=== PATIENT | female | born 1990 | race Caucasian/White ===

== ENCOUNTER 2020-04-11 12:16 | Observation (INO) | payer MEDICAID ==
[2020-04-11] MEDS ORDERED: ONDANSETRON PF 4 MG/2 ML VIAL. ONE ×2 (12:44→13:17)
[2020-04-11] MEDS ORDERED: IV RINGERS,LACTATED 1000ML 1,000 ML IV SCH (12:48)
[2020-04-11] MEDS ORDERED: miSOPROStol 200 MCG TABLET ONE (12:49)
[2020-04-11] MEDS ORDERED: OXYTOCIN 10 UNIT/ML VIAL. ONE ×2 (12:49→14:06)
[2020-04-11] MEDS ORDERED: LIDOCAINE 1% PF 2 ML VIAL. ID PRN (13:00)
[2020-04-11] MEDS ORDERED: fentaNYL PF VIAL 100 MCG/2 ML VIAL IV PRN ×2 (13:00)
[2020-04-11] MEDS ORDERED: PROCHLORPERAZINE 10 MG/2 ML VIAL. IV PRN (13:00)
[2020-04-11] MEDS ORDERED: MORPHINE SULFATE 2 MG/ML VIAL. IV PRN (13:00)
[2020-04-11] MEDS ORDERED: ONDANSETRON PF 4 MG/2 ML VIAL. IV PRN (13:00)
[2020-04-11] MEDS ORDERED: HYDROmorphone 2 MG/ML VIAL IV PRN (13:00)
[2020-04-11] MEDS ORDERED: ceFAZolin SODIUM IV Push 1 GM VIAL. IVP ONE (13:10)
[2020-04-11] MEDS ORDERED: ceFAZolin SODIUM IV Push 1 GM VIAL. IVP PRN (13:15)
[2020-04-11] MEDS ORDERED: DEXAMETHASONE SOD PHOS 4 MG/ML VIAL ONE (13:17)
[2020-04-11] MEDS ORDERED: LIDOCAINE 2% PF 5 ML VIAL. ONE (13:17)
[2020-04-11] MEDS ORDERED: KETOROLAC 30 MG/ML VIAL. ONE (13:17)
[2020-04-11] MEDS ORDERED: PROPOFOL 10 MG/ML (20ML) VIAL. IV ONE (13:17)
[2020-04-11] MEDS ORDERED: SEVOFLURANE 16 TO 30 MINUTES. IH ONE (13:17)
[2020-04-11] MEDS ORDERED: FAMOTIDINE 20 MG/2 ML VIAL ONE (13:17)
[2020-04-11] MEDS ORDERED: fentaNYL PF VIAL 100 MCG/2 ML VIAL ONE (13:19)
--- NOTE | 2020-04-11 13:53 | PDOC ---
GENERAL General: 29yrs old lady [id number] Miscarriage came thru ER for with Bleeding for 2 weeks Passing Clots.Pt admitted for Incomplete VITAL SIGNS Vital Signs/I&O: Vital Signs Date Time Temp Pulse Resp B/P (MAP) Pulse Ox O2 Delivery O2 Flow Rate FiO2 04/11/20 12:45 98.0 80 15 98/65 100 Room Air 98.0 ALLERGIES Allergies: Allergies Coded Allergies Type Severity Reaction Last Updated Verified No Known Drug Allergies 04/11/20 No MEDS Medications: Current Medications Medications (Trade) Dose Ordered Sig/Radha Route PRN Reason Start Time Stop Time Status Last Admin Dose Admin Ondansetron HCl (Zofran) 4 mg PRN Q6HRS PRN IV NAUSEA/VOMITING 04/11/20 13:00 04/12/20 12:59 04/11/20 12:49 Ringer's Solution 1,000 ml @ 30 mls/hr Q24H IV 04/11/20 12:48 04/12/20 00:47 04/11/20 12:48 ASSESSMENT & PLAN A&P Under GA D&C Suction Curettage done. EBL 150cc. YONG AVILA MD April 11, 2020 13:53
--- NOTE | 2020-04-11 14:08 | OP ---
DATE OF SURGERY: PREOPERATIVE DIAGNOSES: with bleeding, incomplete . POSTOPERATIVE DIAGNOSES: with bleeding, incomplete . OPERATION PERFORMED: D and C, suction curettage. DESCRIPTION OF PROCEDURE: The patient was taken to the operating room. Under general anesthesia, she was placed in a dorsal lithotomy position. Perineum was prepped and draped in the usual manner. Bladder was catheterized and weighted speculum inserted in the posterior vaginal wall. Anterior lip of the cervix held with a tenaculum and uterine sound is used to measure the length of the uterine cavity. After this, dilators were used to dilate the cervix. A size 8 suction tip cannula was used to suction the uterus. She did receive Pitocin during the time of the D and C. All the suction curettage material is sent for pathological examination. At the end of the suction curettage, medium-sized curette was used to curette the endometrial cavity and all the curettings were also sent to the pathological examination. At the end of the curettage, speculum tenaculum is removed and the patient was sent to the recovery room in good condition. No complications encountered at time of the procedure. Estimated blood loss about 150 mL. Postoperative condition is stable. She will be followed in the office in 2 weeks for further care and treatment. YONG AVILA MD DR: RADHA/marvin JOB#: [id number] / [id number]
[2020-04-11] MEDS ORDERED: TRAM50TA PO (14:11)
[2020-04-11] MEDS ORDERED: OXYTOCIN 10 UNIT/ML VIAL. IVP ONE (14:15)
[2020-04-11 15:00] VITALS: BP 89/51
--- NOTE | 2020-04-12 16:24 | HP ---
ADMIT DATE: 04/11/2020 CHIEF COMPLAINT AND HISTORY OF PRESENT ILLNESS: This patient is a 29-year-old white female who is a 7, para 5, history of 1 miscarriage and she is about 4 months at this time and went to [facility] in [facility] by [facility] in the Emergency Room for with bleeding that is happening for 2 weeks and she was seen by ER physician transferred to [facility] for incomplete and her hemoglobin was about 9 at the time of transfer to [facility]. PHYSICAL EXAMINATION: VITAL SIGNS: Stable. HEAD, EYES, NOSE, THROAT: Within normal limits. LUNGS: Clear. HEART: Sounds regular sinus rhythm. ABDOMEN: Feels soft. PELVIC: Shows external genitalia being normal, external os is open. Moderate vaginal bleeding noted along with the clots. On bimanual exam, uterus feels bulky at least 10-11 week size uterus at this time. No adnexal masses are palpable. EXTREMITIES: No edema of feet. IMPRESSION: Incomplete , retained products of conception. PLAN: Dilation and curettage, suction curettage. YONG AVILA MD DR: RADHA/marvin JOB#: [id number] / [id number]
--- NOTE | 2020-04-13 18:06 | PATHOLOGY ---
[facility] Accession Number: [id number] . 01 Material submitted: . product of conception - PRODUCTS OF CONCEPTION . 01 Clinical history: . with bleeding; incomplete . 02 Diagnosis: Uterine contents, suction D and C: - Products of conception, comprised of placental membranous tissue, segment of umbilical cord, immature chorionic villi showing focal degenerative changes with associated intervillous fibrin deposition and hemorrhage, and segments of decidual tissue showing focal necrosis and acute inflammation. (JPM/db; 04/13/2020) LBQ 04/13/2020 1539 Local . 02 Electronically signed: . Darvin Pierre MD, Pathologist NPI- [id number] . 01 Gross description: . The specimen is received in formalin, labeled "Shanin Maria, products of conception". Received is a moderate amount of pink-noonan soft tissue admixed with membranes and umbilical cord measuring 1.8 x 4.2 x 0.5 cm in aggregate dimensions. or embryonic tissue is not grossly identified. Vesicular structures are absent. The specimen is submitted representatively in cassettes A1 through A3. (CAA; 04/12/2020) QAC/QAC 04/12/2020 1703 Local . 02 Pathologist provided ICD-10: O03.4, O02.89 . 02 CPT . 784048 Specimen Comment: A courtesy copy of this report has been sent to [phone] Specimen Comment: Report sent to Specimen Comment: A duplicate report has been generated due to demographic updates. Performed at: 01 [facility] [address] [facility] [address] [facility] [address], [place], [place] [id number] MD Emmanuel Turcios MD Phone: [phone] Performed at: 02 [facility] [place] [address] [place], [place] [id number] MD Darvin Pierre MD Phone: [phone]
== END 2020-04-11 16:00 | disposition home or self-care (01) ==
LOC: SURG 12:16 → 3 NORTH 15:44
PROVIDERS: ADMIT Obstetrics & Gynecology; ATTEND Obstetrics & Gynecology
DX: O03.4 Incomplete spontaneous abortion without complication (principal)
CPT/HCPCS: 59812; G0378; G0379; J0690; J1100; J1885; J2405; J2590; J2704; J3010; J3490; 88305